=== PATIENT | female | born 1965 | race Caucasian/White ===

== ENCOUNTER → 2017-03-26 | Day surgery (SDC) | payer BC ==
--- NOTE | 2017-03-29 15:54 | PATH ---
Surgical Pathology Report Patient Name: EMILY SIMMONS [facility]. Rec. #: [id number] /Age/Gender: 1965 (Age: 51) / F Account: [id number] Location: [facility] Taken: 03/26/2017 Received: 03/26/2017 Reported: 03/29/2017 Physicians: Randolph Haas M.D. Specimen(s) Received RIGHT BREAST 1N 4-6 CORE BIOPSY Clinical History Palpable mass Ultrasound findings: Highly suspicious/malignant Final Diagnosis BREAST, RIGHT, 1 N 4-6, CORE BIOPSY: INVASIVE DUCTAL CARCINOMA, MODERATELY DIFFERENTIATED WITH FEW ASSOCIATED CALCIFICATIONS, MEASURING AT LEAST 1.3 CM IN GREATEST DIMENSION IN THIS MATERIAL. (SEE NOTE) FOCAL DUCTAL CARCINOMA IN SITU (DCIS), INTERMEDIATE NUCLEAR GRADE WITH MODERATE NECROSIS AND ASSOCIATED CALCIFICATIONS. Note: The carcinoma shows strong membranous positivity for E-Cadherin (performed at [facility]) which supports ductal phenotype. Results of ER and RI studies performed at [facility] are as follows: ER (clone [id number] mouse monoclonal antibody by [employer]): > 90 % nuclear staining with strong intensity (Positive). RI (clone16 mouse monoclonal antibody by [employer]): ~ 80 % nuclear staining with strong intensity (Positive). Results of Her2 and Ki67 studies will be reported separately in an addendum. Positive and negative controls (internal if applicable) show appropriate results. Formalin fixation and cold ischemic times are within current ASCO/CAP recommendations for ER, RI and Her2 testing. Electronically Signed Iliana Sabillon M.D. Addendum Reported: 03/30/2017 Addendum Diagnosis Results of Her2 (IHC) & Ki-67 studies performed at [place], [place] ([id number]) are as follows: Her2 IHC (EP3 from [employer], formerly known as [id number], using [employer] Polymer Refine detection kit): 0 (Negative). Ki-67: 30-40% (High proliferative index). Positive and negative controls (internal if applicable) show appropriate results. Iliana Sabillon M.D. Gross Description Received in formalin, labeled "right breast 1N 4-6" it consists of five cores of light chan tissue admixed with blood clot, ranging from 0.4-1.4 cm in length with a diameter of up to 0.2 cm. Entirely submitted one cassette. Time to formalin fixation: < 1 minute Total formalin fixation time: Approximately 16 hours
--- NOTE | 2017-03-30 10:50 | OP ---
DATE OF OPERATION: 03/26/2017 PREOPERATIVE DIAGNOSIS: Right breast mass, 1 o'clock, 4 to 6 cm from the nipple. POSTOPERATIVE DIAGNOSIS: Right breast mass, 1 o'clock, 4 to 6 cm from the nipple. PROCEDURE: Right ultrasound-guided core biopsy with clip placement. ANESTHESIA: Local. ATTENDING SURGEON: Juanpablo Melendrez MD ESTIMATED BLOOD LOSS: Minimal. COMPLICATIONS: None. PROCEDURE: The patient was made aware of the risks and benefits of the procedure and consented. She was placed in the supine position. Ultrasound interrogation of her right axilla revealed no suspicious lymph nodes. The right breast was then approached. Under sterile conditions with 1% lidocaine for local anesthesia, a small jessika was made in the skin. Using a 10-gauge, suction-biopsy device, via lateral approach, under ultrasound guidance, multiple cores were obtained and submitted to Pathology. Likewise, under ultrasound guidance, a clip was placed into the biopsy region. Well tolerated by patient. Steri-Strips and a sterile bandage were applied. We will contact her with the results. JUANPABLO MELENDREZ M.D. [id number]
== END | disposition home or self-care (01) ==
LOC: FRADUS-SUR 14:35
PROVIDERS: ATTEND Surgery
PROC: 0HBT3ZX Excision of Right Breast, Percutaneous Approach, Diagnostic (ICD-10-PCS; principal; 2017-03-26)
DX: C50.411 Malignant neoplasm of upper-outer quadrant of right female breast (principal); Z17.0 Estrogen receptor positive status [ER+]; N63.12 Unspecified lump in the right breast, upper inner quadrant
CPT/HCPCS: 19083; 88305-TC; 88342-TC